=== PATIENT | female | born 1975 | race Caucasian/White ===

== ENCOUNTER → 2017-02-04 | Outpatient (CLI) | payer BC ==
[~2017-02-04] MED LIST: CITA20TA4 PO; FROV2.5T5 PO; MISCCAP80 PO; MTR600X PO; MULT-884 PO; TOPI25TA10 PO; VALTREX PO
--- NOTE | 2017-02-12 12:58 | MAMMOGRAPHY REPORT ---
BILATERAL DIGITAL DIAGNOSTIC MAMMOGRAM TOMOSYNTHESIS WITH CAD AND TARGETED BILATERAL ULTRASOUND: 01/20 CLINICAL HISTORY: Time of annual bilateral screening mammogram. Also follow-up bilateral breast ult rasound for benign appearing masses. History of previous right breast biopsy in 1:00 axis of a darcy nant solid-appearing mass, which yielded a benign fibroadenoma. TECHNIQUE: Bilateral breast tomosynthesis in addition to standard 2D mammography was performed. Curr ent study was also evaluated with a Computer Aided Detection (CAD) system. COMPARISON: Comparison is made to exams dated: 08/06/2016 ultrasound, 02/02/2016 ultrasound, 02/02/20 16 mammogram, 07/21/2015 ultrasound biopsy, 07/21/2015 mammogram, and 07/06/2015 ultrasound - [facility]. BREAST COMPOSITION: The tissue of both breasts is heterogeneously dense, which may obscure small ma sses. FINDINGS: There is an incompletely visualized, partially circumscribed 13 mm mass in the far posteri or 1:00 to 2:00 right breast with internal metallic biopsy marker, denoting the biopsy proven fibroa denoma. It is difficult to obtain accurate mammographic measurements given that it is not completel y seen given the far posterior location. Located 4 cm superior to this biopsied mass is a 7 mm nodu lar asymmetry projecting over the pectoralis muscle on the MLO view. This does not definitely persi st as a mass on the corresponding tomosynthesis images, but it is increasingly conspicuous compared to prior mammograms. There is decreased nodularity in the medial posterior left breast on the CC vi ew. No other new suspicious mass, architectural distortion or cluster of microcalcifications is see n bilaterally. Targeted ultrasound was performed throughout each breast to ensure stability of multiple hypoechoic and anechoic benign appearing masses, and also throughout the superior right breast to assess for th e 7 mm nodular asymmetry. In the 12:00 left breast, to 7 m from the nipple, there is a lobulated isoechoic solid-appearing mas s measuring 7.4 x 4.8 x 10.2 mm. A well-circumscribed isoechoic solid-appearing mass is identified in the 1:00 periareolar left breast measuring 6.5 x 2.8 x 2.9 mm. There is an isoechoic solid mass versus normal fat lobule in the 12:00 left breast, 3 cm from the nipple, measuring 8.7 x 4.4 x 12.0 mm. In the 3:00 left breast, 3 cm from the nipple, there is an ovoid parallel circumscribed hypoech oic solid-appearing mass measuring 9.5 x 5.0 x 2.8 mm, previously 11.7 x 5.2 x 10.8 mm. Another hyp oechoic solid-appearing circumscribed mass is seen abutting the pectoralis muscle in the 2:00 left b reast, 1 cm from the nipple, measuring 6.7 x 4.4 x 7.8 mm. In the 3:00 left breast, 1 cm from the n ipple, there is an isoechoic solid-appearing circumscribed mass measuring 4.7 x 3.5 x 4.0 mm. Anoth er solid-appearing hypoechoic circumscribed mass in the 9:00 periareolar left breast measures 6.9 x 4.7 x 10.7 mm, previously measured approximately 9.5 x 4.1 x 5.0 mm, and is considered stable. In t he left 10:00 breast, 2 cm from the nipple, there is a parallel hypoechoic solid-appearing mass opal uring 5.2 x 3.1 x5.7 mm. In the right 1:00 breast, 3 cm from the nipple, there is a lobulated hypoechoic parallel circumscrib ed mass measuring 12.5 x 6.9 x 20.6 mm. This represents the biopsy-proven fibroadenoma, and previou s ultrasound measurements dated 02/02/2016 or 17.7 x 6.0 x 12.0 mm. This is considered stable given slight differences in measuring technique. However, the patient noted tenderness while scanning ov er this mass. Continued clinical monitoring is recommended. An isoechoic circumscribed lobulated s olid-appearing mass in the 9:00 right breast, 4 cm from the nipple measures 5.9 x 3.5 x 7.9 mm, this previously measured 6.8 x 3.1 mm on 07/06/2015 and is considered stable for nearly 2 years. There is a parallel circumscribed hypoechoic solid versus cystic mass in the 9:00 right breast, 2 cm from the nipple, measuring 8.4 x 4.0 x 8.2 mm. Throughout the remainder of the right superior breast on ultrasound, in which additional imaging was performed 02/11/2017, additional scattered anechoic arely gn simple cysts are seen in the 9:00 axis, 7 cm from the nipple. In the 12:00 axis, 3 cm from the n ipple, there is an anechoic round cyst with posterior acoustic enhancement measuring 5.7 x 5.2 mm. An adjacent more superficial oval anechoic cyst measuring 5 mm. However there is no new suspicious solid mass throughout the superior right breast on ultrasound. IMPRESSION: ACR-BI-RADS CATEGORY 3: PROBABLY BENIGN, TARGETED ULTRASOUND ACR-BI-RADS CATEGORY 3: DE OBABLY BENIGN 1. There is a 7 mm nodular asymmetry in the superior posterior right breast, only seen on the MLO v iew that is increasingly prominent compared to prior mammograms. However, no new suspicious sonogra phic correlate was seen in the superior right breast. Although this could represent overlapping fib roglandular tissue, a short interval follow-up diagnostic right mammogram including tomosynthesis im ages and possible repeat ultrasound is recommend to ensure stability in 6 months. 2. There are multiple bilateral isoechoic, hypoechoic and anechoic masses scattered in the breasts with circumscribed borders. These findings most likely represent a combination of fibrocystic dolan es including complicated cysts and benign masses such as fibroadenomas. All of the visualized karey s are stable in size comparing to the 08/06/2016 ultrasound, and some of the masses bilaterally have been stable dating back to 2014, including the right 9:00 breast, 3 cm from the nipple, the left 9: 00 periareolar breast and left 3:00 breast, 3 cm from the nipple. However, longer stability is need ed and repeat ultrasound of the right breast is recommended at time of six-month follow-up diagnosti c mammography. The remainder of the masses including those seen in the left breast should be reasse ssed with ultrasound in one year, at which time annual bilateral mammography is also due. The January 21 018 appointment should be 30 minutes. These results were discussed with the patient on both 02/04/2017 and 02/11/2017, and final recommend ations were provided at that time. A six-month follow-up diagnostic right mammogram and ultrasound is recommended. Continued clinical monitoring is also recommended for the tender biopsy-proven fibr oadenoma in the right 1:00 breast. Approximately 10% of breast cancers are not detected with mammography. A negative mammographic repor t should not delay biopsy if a clinically suggestive mass is present. Marlin Saldana M.D. ay/:02/11/2017 18:04:55 Filling Station Attendant: Karen MAGDALENO(Ge)(Denise), [facility] letter sent: Follow Up Recommended 3 BI-RADS Code: ACR-BI-RADS Category 3: Probably Benign Ultrasound BI-RADS: ACR-BI-RADS Category 3: P robably Benign
== END | disposition home or self-care (01) ==
LOC: C.MAMM 08:43
PROVIDERS: ATTEND Obstetrics & Gynecology
DX: N64.9 Disorder of breast, unspecified (principal); N63 Unspecified lump in breast

== ENCOUNTER → 2017-10-03 | Outpatient (CLI) | payer BC ==
--- NOTE | 2017-10-03 15:09 | MAMMOGRAPHY REPORT ---
UNILATERAL RIGHT DIGITAL DIAGNOSTIC MAMMOGRAM TOMOSYNTHESIS WITH CAD AND TARGETED RIGHT ULTRASOUND: CLINICAL HISTORY: History of prior biopsy of a right 1:00 breast mass which yielded a benign fibroade noma 07/21/2015. The patient also presents for short interval follow-up of a right breast asymmetry and benign-appearing right breast masses. TECHNIQUE: Breast tomosynthesis in addition to standard 2D mammography was performed. Current study was also evaluated with a Computer Aided Detection (CAD) system. Right CC and MLO 2-D and tomosynthe sis images were obtained. COMPARISON: Comparison is made to exams dated: 02/04/2017 ultrasound, 02/04/2017 mammogram, 02/02/2016 ultrasound, 08/06/2016 ultrasound, 07/21/2015 ultrasound biopsy, and 07/21/2015 mammogram - [facility]. BREAST COMPOSITION: The tissue of the right breast is heterogeneously dense, which may obscure small masses. FINDINGS: Again noted is a partially visualized mass within the right upper inner quadrant posterior ly with an associated biopsy marker clip; this was previously biopsied and yielded a fibroadenoma. T he remainder of the right breast is stable compared to prior exams, without suspicious masses, calcif ications, or areas of architectural distortion noted. The previously described asymmetry within the right superior breast is less prominent and has the appearance of normal fibroglandular tissue on the current exam. Targeted ultrasound was performed of the previously seen right breast masses for which follow-up was recommended. In the right breast at 1:00, approximately 5 cm from the nipple, there is an oval circu mscribed hypoechoic solid mass which measures 1.5 x 0.8 x 2.4 cm. In retrospect, the mass has slowly increased in size compared to prior exams including the January 2016 postbiopsy exam where the mass opal ured 1.2 x 0.6 x 1.8 cm. Additionally, the mass measured 1.1 x 0.6 x 1.5 cm on the 07/06/2015 exam. Although this mass likely represents a fibroadenoma given the benign pathology on biopsy, excision i s recommended given the interval increase in size. Additionally, the patient reports the mass is int ermittently tender. In the right breast at 9:00, 4 cm from the nipple, there is an isoechoic circumscribed benign-appeari ng 6 x 4 x 8 mm mass which is stable dating back to at least July 2016 exam. In the right breast at 9:00, 2 cm from the nipple, there is an oval circumscribed nearly anechoic 9 x 4 x 10 mm mass whi ch is also stable dating back to the July 2016 exam. These masses are probably benign and recomm end follow-up in 6 months to ensure longer stability. IMPRESSION: ACR BI-RADS CATEGORY 4: SUSPICIOUS, TARGETED ULTRASOUND ACR BI-RADS CATEGORY 4: SUSPICIO US 1. Progressive interval increase in size of the previously biopsied mass in the right 1:00 breast, n ow measuring 2.4 cm. Although this likely represents a fibroadenoma, surgical excision is recommende d due to the increase in size. 2. Benign-appearing masses in the right 9:00 breast on ultrasound are stable dating back to the 2015 exam and are probably benign. These can be reevaluated at the time of the already schedule d bilateral six-month follow-up in which bilateral mammograms and repeat ultrasound will be performed (30 minute time slot). A phone call was made to the physician's office to confirm faxed results were received. The patient has been verbally notified of the results. Approximately 10% of breast cancers are not detected with mammography. A negative mammographic report should not delay biopsy if a clinically suggestive mass is present. Michelle Dai M.D. ah/:10/03/2017 12:01:11 Machine Pecan Picker: Heidi Wynn, [facility] letter sent: Abnormal 4/5 BI-RADS Code: ACR BI-RADS Category 4: Suspicious Ultrasound BI-RADS: ACR BI-RADS Category 4: Suspici ous
== END | disposition home or self-care (01) ==
LOC: C.MAMM 08:31
PROVIDERS: ATTEND Obstetrics & Gynecology
DX: N63.12 Unspecified lump in the right breast, upper inner quadrant (principal)

== ENCOUNTER → 2017-11-14 | Day surgery (SDC) | payer BC ==
[2017-10-29 07:45] VITALS: Ht 160 cm; Wt 70.5 kg
[~2017-11-14] VITALS: Ht 160 cm; Wt 70.5 kg
[~2017-11-14] MED LIST changes: +ATROPINE SULFATE 0.1 MG/ML 5ML SYR IV PRN; +BUPIVACAINE 0.5 % 5 MG/1 ML MPF 30ML VIAL ONE; +CEFAZOLIN 2000MG IV PUSH 15 ML IV SCH; -CITA20TA4 PO; +CITA40TA4 PO; +DEXAMETHASONE SOD INJ 4 MG/ML VIAL IV PRN; +DEXAMETHASONE SOD INJ 4 MG/ML VIAL ONE; +EpHEDrine SULFATE INJ 50 MG/ML AMP IV PRN; +FENTANYL CITRATE INJ 50 MCG/1 ML 2 ML VIAL IV PRN; +FENTANYL CITRATE INJ 50 MCG/1 ML 2 ML VIAL ONE; -FROV2.5T5 PO; +HYDR-5688 PO; +HYDROCODONE/ACETAMIN 5/325MG TAB ONE; +HYDROCODONE/ACETAMIN 5/325MG TAB PO PRN; +KETOROLAC TROMETHAMINE 30 MG/ML VIAL IV. PRN; +LABETALOL HCL IV 5 MG/ML 20ML IV PRN; +LACTATED RINGER'S 1000ML 1,000 ML IV SCH; +LIDOCAINE HCL 2% 2 ML VIAL (20MG/ML) ONE; +METHYLENE BLUE 0.5% 10 ML VIAL ONE; +METOCLOPRAMIDE HCL INJ 5 MG/ML 2 ML VIAL IV PRN; +MIDAZOLAM HCL 1 MG/ML 2ML VIAL ONE; -MTR600X PO; +MoRPHine SULFATE 10 MG/ML CARP/VIAL IV PRN; +NURSING VERBAL MED ORDER ONE; +ONDA4TAB46 PO; +ONDANSETRON INJ 2 MG/ML 2 ML VIAL IV PRN; +ONDANSETRON INJ 2 MG/ML 2 ML VIAL ONE; +PHENYLEPHRINE 100MCG/ML 5ML SYR IV PRN; +PROPOFOL IV EMULSION 10 MG/ML 20 ML VIAL IV ONE; +SODIUM CHLORIDE 0.9% 1000ML 1,000 ML IV SCH; -TOPI25TA10 PO; +VALA500T60 PO; -VALTREX PO; +VNTHFA/IN INH
--- NOTE | 2017-11-14 10:01 | History & Physical Bridge - [place] ---
H&P Re-Evaluation Bridge Note: I have examined the patient, reviewed the History & Physical and in the interval since the performance of the History & Physical I have noted the following changes of clinical significance: No changes noted
--- NOTE | 2017-11-14 10:06 | Discharge Instructions-SurgCtr ---
Discharge Instructions Date of Service Nov 14, 2017. Visit Reason for Visit: Right Breast Lump Discharge Discharge Diagnosis / Problem: Rt breast mass Discharge Goals Goal(s): Decrease discomfort, Improve function, Improve disease control Activity Recommendations Activity Limitations: as noted below Lifting Limitations: no more than 25 pounds (for 2 weeks) Exercise/Sports Limitations: until after follow-up appointment May Resume Sexual Activity: when tolerated Shower/Bathe: keep incision dry (may shower over incision in 2 days) Driving or Machine Use: resume 1 day after discharge Anesthesia . Post Anesthesia Instructions: If you have had General Anesthesia or IV Sedation: * Do not drive today. * Resume driving when surgeon permits. * Do not make important decisions or sign legal documents today. * Call surgeon for: 1. Temperature elevations greater than 101 degrees F. 2. Uncontrollable pain. 3. Excessive bleeding. 4. Persistent nausea and vomiting. 5. Medication intolerance (nausea, vomiting or rash). * For nausea and vomiting use only clear liquids such as: tea, soda, bouillon until nausea subsides, then gradually increase diet as tolerated. * If you have any concerns or questions, call your surgeon's office. If physician is unavailable and it is an emergency, call 911 or go to the nearest emergency room. . Instructions / Follow-Up Instructions / Follow-Up SPECIAL CARE INSTRUCTIONS: * Cover incisions and change daily for comfort/drainage. * Leave steri strips in place * May use ibuprofen for pain as tolerated. * Expect some swelling and bruising. Call your doctor if: * Temperature above 101 degrees * Pain not relieved by pain medicine ordered * There is increased drainage or redness from any incision * You have any unanswered questions or concerns [phone]. FOLLOW UP VISIT: If not already scheduled, please call the office for a follow-up visit. for next week- suture removal at the end of the incision OFFICE PHONE NUMBER: Dr. Marinelli Office Diet Recommendations Home Diet: resume previous diet Pending Studies Studies pending at discharge: no Medical Emergencies . Who to Call and When: Medical Emergencies: If at any time you feel your situation is an emergency, please call 911 immediately. . Non-Emergent Contact Non-Emergency issues call your: Primary Care Provider, Surgeon . . "Provider Documentation" section prepared by Bernardino Marinelli. .
--- NOTE | 2017-11-14 11:54 | [facility] Operative Report ---
Operative Report Operative Date Nov 14, 2017. Pre-Operative Diagnosis Right Breast Lump Post-Operative Diagnosis same as preop Procedure(s) Performed Right Breast Biopsy With Needle Localization Surgeon Dr. Marinelli Creative Designer Surgeon(s) DIXON Live Estimated Blood Loss 10ml Findings Rt br mass Specimens A: Right breast tissue (sent to [facility] at 1128) needle is medial, long silk is lateral, short silk is superior B: additional inferior deep tissue, stitch is long lateral, methylene blue zuleta new margin C. Additional deep superior tissue, silk is lateral, meth blue new margin Anesthesia Type General Complication(s) none Disposition Recovery Room / PACU I attest to the content of the Intraoperative Record and any orders documented therein. Any exceptions are noted below.
--- NOTE | 2017-11-14 12:38 | OPERATIVE REPORT ---
DATE OF OPERATION: 11/14/2017 NAME OF OPERATION: Needle localization and excision, right breast mass. PREOPERATIVE DIAGNOSIS: Right breast mass. POSTOPERATIVE DIAGNOSIS: Same. STAFF SURGEON: Dr. Bernardino Marinelli. VETERINARY RECEPTIONIST: Vikki Brewer PA-C ANESTHESIA: General. DESCRIPTION OF PROCEDURE: The patient was brought in the operating room and placed on the operating table in supine position. A needle had been placed in the medial part of her right breast. Her right breast and chest were prepped and draped in usual fashion, 0.5% plain Marcaine was used to anesthetize the skin and subcutaneous tissue. Transverse incision made carrying dissection down along the needle, excising the mass near the needle. The tissue was marked with right breast tissue needle medial, long silk suture lateral, short silk suture superior. It was sent over to the breast center and the clip was within the tissue. I was able to see the area of the mass and the tissue. At this point, additional tissue was taken, additional superior tissue and the inferior tissue down to the fascia. It was marked with a long silk suture lateral and methylene blue as the new margin. After appropriate hemostasis, the deep tissue was reapproximated using 2-0 plain catgut suture and then the skin reapproximated using subcuticular 5-0 Monocryl with Steri-Strips. Dressing applied. My commercial assistant helped with prepping, draping, exposing the mass, excising the mass, closing the wound. I attest to the content of the Intraoperative Record and any orders documented therein. Any exception s are noted below.
--- NOTE | 2017-11-14 12:39 | Anesthesia Progress Nt - [facility] ---
Anesthesia Post Op Note Date & Time Nov 14, 2017 at 12:39 Vital Signs Pain Intensity: 3 Vital Signs Past 12 Hours Date Time Temp Pulse Resp B/P (MAP) Pulse Ox O2 Delivery O2 Flow Rate FiO2 11/14/17 12:26 144/67 11/14/17 12:23 93 18 11/14/17 12:23 94 18 98 11/14/17 12:22 36.9 94 20 141/77 98 Room Air 11/14/17 12:21 141/77 11/14/17 12:18 89 12 100 11/14/17 12:18 89 12 11/14/17 12:16 124/77 11/14/17 12:13 89 13 100 11/14/17 12:13 90 13 11/14/17 12:12 91 15 100 11/14/17 12:12 92 15 11/14/17 12:11 135/75 11/14/17 12:07 86 8 11/14/17 12:07 87 8 100 11/14/17 12:06 132/79 11/14/17 12:02 86 18 11/14/17 12:02 85 18 98 11/14/17 12:01 128/67 11/14/17 11:58 126/75 11/14/17 11:57 36.6 99 16 126/79 99 Mask 6 11/14/17 07:53 36.6 79 16 133/60 (84) 97 Room Air Notes Mental Status: alert / awake / arousable, participated in evaluation Pt Amnestic to Procedure: Yes Nausea / Vomiting: adequately controlled Pain: adequately controlled Airway Patency, RR, SpO2: stable & adequate BP & HR: stable & adequate Hydration State: stable & adequate Anesthetic Complications: no major complications apparent
[2017-11-14 13:10] VITALS: BP 127/75; PULSE 91; O2SAT 97
--- NOTE | 2017-11-14 14:43 | MAMMOGRAPHY REPORT ---
UNILATERAL RIGHT DIGITAL DIAGNOSTIC MAMMOGRAM TOMOSYNTHESIS: 11/14/2017 CLINICAL HISTORY: Patient presents for surgical excision of a fibroadenoma in the 1:00 posterior righ t breast, that had been previously biopsied but it continued to increase in size after biopsy. Please refer to the report from right breast ultrasound-guided needle localization performed at the s chel time for full detail. IMPRESSION: Please refer to the report from right breast ultrasound-guided needle localization performed at the s chel time for full detail. Approximately 10% of breast cancers are not detected with mammography. A negative mammographic report should not delay biopsy if a clinically suggestive mass is present. Marlin Saldana M.D. ay/:11/14/2017 09:00:25 Director Of Partnerships: Amanda HERR)(Denise), [facility] BI-RADS Code: n/a
--- NOTE | 2017-11-14 14:43 | MAMMOGRAPHY REPORT ---
NEEDLE LOCALIZATION RIGHT BREAST: 11/14/2017 CLINICAL HISTORY: 42-year-old woman with a biopsy proven fibroadenoma in the 1:00 right breast that h as been progressively increasing in size on follow-up imaging and therefore surgical excision was rec ommended. She presents for needle localization prior to excision. COMPARISON: Comparison is made to exams dated: 10/03/2017 ultrasound, 10/03/2017 mammogram, 02/04/2017 ultrasound, 02/04/2017 mammogram, 02/02/2016 mammogram, and 07/06/2015 mammogram - [facility]. PATIENT CONSENT: The risks of the procedure were explained to the patient and informed consent was ob tained. The patient denied eating or drinking anything this morning that would preclude anesthesia. No allergy to lidocaine. A timeout was performed and the right breast was confirmed as site for nee dle localization. PROCEDURE: Targeted ultrasound was performed in the 1:00 right breast in the area of enlarging biopsy proven fibroadenoma. It is again identified and amenable to ultrasound-guided localization. The sk in of the right upper inner quadrant was cleansed with Betadine. Sterile drapes were placed. 1% buf fered lidocaine was administered as local anesthesia. A 5 cm Poole 2 needle and wire combination w as inserted into the 1:00 right breast via a medial approach. The needle traversed the mass and was locked in place, with the wire jewels located at the medial edge of the mass. Postprocedure right CC and MLO 2-D and tomosynthesis images were performed, which demonstrated the lo calizing needle and wire entering the mass in question in the 1:00 posterior right breast. The ribbo n-shaped biopsy marker clip is adjacent to the notch in the needle in the area of the exiting jewels. The orientation of the mass, procedure description and needle length were discussed with the operatin g surgeon prior to surgery. The patient tolerated the procedure well and there was no immediate comp lication. She was transferred to the operating room in satisfactory condition. The surgical specimen radiograph demonstrates the localizing needle/wire combination and mass with as sociated ribbon-shaped biopsy marker clip, compatible with successful preoperative localization and s ubsequent surgical excision. IMPRESSION: NEEDLE LOCALIZATION Status post preoperative needle and wire localization for an enlarging biopsy proven fibroadenoma in the 1:00 right breast. The imaged specimen includes the intended abnormalities. Pending pathology results, follow-up bilateral diagnostic mammograms and possible ultrasound is recom mended to ensure stability in 6 months. Marlin Saldana M.D. ay/:11/14/2017 12:28:26 Steel Analyst: Amanda HERR)(Denise), [facility]
--- NOTE | 2017-11-14 14:43 | MAMMOGRAPHY REPORT ---
SPECIMEN: 11/14/2017 CLINICAL HISTORY: Right breast surgical excision for an increasing, previously biopsied fibroadenoma. Please refer to the report from right breast ultrasound-guided needle localization performed at the s chel time for full detail. IMPRESSION: SPECIMEN Please refer to the report from right breast ultrasound-guided needle localization performed at the s chel time for full detail. Marlin Saldana M.D. ay/:11/14/2017 08:59:30 Billing Analyst: Amanda HERR)(M), [facility]
== END | disposition home or self-care (01) ==
LOC: X.SURG 07:40
PROVIDERS: ATTEND Surgery
DX: N63.0 Unspecified lump in unspecified breast (principal); D68.0 Von Willebrand disease; F32.9 Major depressive disorder, single episode, unspecified; Z87.01 Personal history of pneumonia (recurrent); Z90.710 Acquired absence of both cervix and uterus; Z82.49 Family history of ischemic heart disease and other diseases of the circulatory system; Z82.0 Family history of epilepsy and other diseases of the nervous system; Z83.42 Family history of familial hypercholesterolemia; Z87.891 Personal history of nicotine dependence; Z88.6 Allergy status to analgesic agent; Z88.8 Allergy status to other drugs, medicaments and biological substances

== ENCOUNTER → 2018-02-05 | Outpatient (CLI) | payer BC ==
[~2018-02-05] MED LIST changes: -ATROPINE SULFATE 0.1 MG/ML 5ML SYR IV PRN; -BUPIVACAINE 0.5 % 5 MG/1 ML MPF 30ML VIAL ONE; -CEFAZOLIN 2000MG IV PUSH 15 ML IV SCH; -DEXAMETHASONE SOD INJ 4 MG/ML VIAL IV PRN; -DEXAMETHASONE SOD INJ 4 MG/ML VIAL ONE; -EpHEDrine SULFATE INJ 50 MG/ML AMP IV PRN; -FENTANYL CITRATE INJ 50 MCG/1 ML 2 ML VIAL IV PRN; -FENTANYL CITRATE INJ 50 MCG/1 ML 2 ML VIAL ONE; -HYDROCODONE/ACETAMIN 5/325MG TAB ONE; -HYDROCODONE/ACETAMIN 5/325MG TAB PO PRN; -KETOROLAC TROMETHAMINE 30 MG/ML VIAL IV. PRN; -LABETALOL HCL IV 5 MG/ML 20ML IV PRN; -LACTATED RINGER'S 1000ML 1,000 ML IV SCH; -LIDOCAINE HCL 2% 2 ML VIAL (20MG/ML) ONE; -METHYLENE BLUE 0.5% 10 ML VIAL ONE; -METOCLOPRAMIDE HCL INJ 5 MG/ML 2 ML VIAL IV PRN; -MIDAZOLAM HCL 1 MG/ML 2ML VIAL ONE; -MoRPHine SULFATE 10 MG/ML CARP/VIAL IV PRN; -NURSING VERBAL MED ORDER ONE; -ONDANSETRON INJ 2 MG/ML 2 ML VIAL IV PRN; -ONDANSETRON INJ 2 MG/ML 2 ML VIAL ONE; -PHENYLEPHRINE 100MCG/ML 5ML SYR IV PRN; -PROPOFOL IV EMULSION 10 MG/ML 20 ML VIAL IV ONE; -SODIUM CHLORIDE 0.9% 1000ML 1,000 ML IV SCH
--- NOTE | 2018-02-06 15:15 | MAMMOGRAPHY REPORT ---
BILATERAL DIGITAL DIAGNOSTIC MAMMOGRAM TOMOSYNTHESIS WITH CAD AND TARGETED BILATERAL ULTRASOUND: 02/05 CLINICAL HISTORY: The patient presents for follow-up of bilateral breast masses. She underwent excisi on of an increasing mass in the right 1:00 breast October 2017 which yielded a benign fibroadenoma. She denies any palpable lumps or other complaints. TECHNIQUE: Breast tomosynthesis in addition to standard 2D mammography was performed. Current study was also evaluated with a Computer Aided Detection (CAD) system. Bilateral CC and MLO 2D and tomosyn thesis images were obtained. COMPARISON: Comparison is made to exams dated: 02/04/2017 mammogram, 02/02/2016 mammogram, 07/06/2015 mammogram, 05/04/2014 mammogram, 04/27/2013 mammogram, and 11/09/2013 mammogram - [facility]. BREAST COMPOSITION: The tissue of both breasts is heterogeneously dense, which may obscure small mas ses. FINDINGS: A linear scar marker denotes a scar on the right upper inner breast. The previously seen m ass in the right 1:00 posterior breast is no longer evident status post interval surgical excision, w hich yielded a benign fibroadenoma on the final pathology. There are no suspicious masses, calcifica tions, or areas of architectural distortion noted within either breast mammographically. An isoechoic circumscribed benign-appearing 11 x 6 x 8 mm mass is again seen within the left 12:00 br east, 2 cm from the nipple, not significantly changed compared to the July 2016 exam. An isoecho ic circumscribed benign-appearing 7 x 4 x 5 mm mass is again noted in the left 1:00 periareolar breas t, also unchanged compared to July 2016. A hypoechoic 8 x 6 x 10 mm mass is again noted within t he left 3:00 breast, 3 cm from the nipple, which appears stable to decreased compared to the July 2016 exam. Another hypoechoic parallel circumscribed 8 x 3 x 6 mm mass is seen within the left 2:00 breast, 1 cm from the nipple, also unchanged. In the left 3:00 breast, 1 cm from the nipple, there is a benign-appearing isoechoic mass which measures 4 x 3 x 4 mm, also unchanged. A hypoechoic mass is again noted in the left 9:00 periareolar breast which measures 9 x 4 x 12 mm and does not appear s ignificantly changed compared to the July 2016 exam. In the left 10:00 breast, 2 cm from the nip ple, again noted is a hypoechoic benign-appearing 5 x 3 x 8 mm mass which is also stable. In the right 9:00 breast, 4 cm from the nipple, again noted is an isoechoic circumscribed benign-appe aring 8 x 3 x 5 mm mass which is stable dating back to at least the June 2015 exam and is consider ed benign given long-term stability. A hypoechoic circumscribed 11 x 9 x 4 mm mass is seen within th e right 9:00 breast, 2 cm from the nipple which is stable compared to the July 2016 exam. IMPRESSION: ACR-BI-RADS CATEGORY 3: PROBABLY BENIGN, TARGETED ULTRASOUND ACR-BI-RADS CATEGORY 3: PRO BABLY BENIGN 1. No mammographic evidence of malignancy in either breast. 2. Numerous isoechoic and hypoechoic masses seen bilaterally on ultrasound are stable compared to pr ior exams dating back to at least July 2016 and are probably benign. Recommend bilateral diagnos tic tomosynthesis mammograms and repeat bilateral targeted ultrasound in 12 months to confirm longer stability of the masses (30-45 minute time slot). The patient has been verbally notified of the results. Approximately 10% of breast cancers are not detected with mammography. A negative mammographic report should not delay biopsy if a clinically suggestive mass is present. Michelle Dai M.D. ah/:02/05/2018 16:37:30 Vulcanizer: Justice HERR)(Denise), [facility] letter sent: Follow Up Recommended 3 BI-RADS Code: ACR-BI-RADS Category 3: Probably Benign Ultrasound BI-RADS: ACR-BI-RADS Category 3: Pr obably Benign
== END | disposition home or self-care (01) ==
LOC: C.MAMM 08:50
PROVIDERS: ATTEND Obstetrics & Gynecology
DX: N63.10 Unspecified lump in the right breast, unspecified quadrant (principal); N63.20 Unspecified lump in the left breast, unspecified quadrant